=== PATIENT | female | born 1975 | race Caucasian/White ===

== ENCOUNTER 2021-07-15 07:25 | Day surgery (SDC) | payer BC ==
[~2021-07-15] VITALS: Ht 177.8 cm; Wt 163.6 kg
[~2021-07-15 07:25] MED LIST: AZULFIDINE500 MG PO; CLARITIN10 MG PO; FLONASE ALLERG9.9 ML; HYDROCODON-ACE1 EA10 PO; MULTIPLE VITAM1 EAC2 PO; NAPROSYN500 MG PO; NORCO 5-325 TA1 EACH PO; PRENATABS FA T1 EACH PO; ZYRTEC10 MG PO
[2021-07-15] MEDS ORDERED: TYLENOL EXTRA500 MG PO (07:49)
[2021-07-15] MEDS ORDERED: CELECOXIB200 MG PO (09:58)
[2021-07-15] MEDS ORDERED: HYDROCODON-ACE1 EA10 PO (09:58)
--- NOTE | 2021-07-15 09:59 | NUR ---
07/15/21 0959 Gladys Henriquez 0955- PT ARRIVES TO PACU NONAROUSABLE TO NOXIOUS STIMULI WITH AN OPA IN PLACE. RESP EVEN AND UNLABORED. OXYGEN SAT HIGH 90'S TO 100% ON 6L VIA MASK. ICE PACK APPLIED TO PT'S RIGHT KNEE. DRESSING IN BETWEEN SKIN AND ICE PACK.
--- NOTE | 2021-07-15 10:20 | NUR ---
PATIENT UP TO THE BATHROOM WITH 1 RN ASSIST AND HER . GAIT STEADY AND PATIENT TOLERATED WELL. PATIENT THEN UP WALKING AROUND HER ROOM. DENIES PAIN.
--- NOTE | 2021-07-15 10:34 | OR ---
[facility] [address], [place] [address] Signed DATE OF OPERATION: 07/15/2021 SURGEON: Delmi Way MD PREOPERATIVE DIAGNOSIS: Medial meniscus tear, right knee. POSTOPERATIVE DIAGNOSIS: Medial plica, right knee. PROCEDURE PERFORMED: Right knee arthroscopy with limited debridement of plica. CHIEF MATE: None. ANESTHESIA: General. BLOOD LOSS: None. BRIEF HISTORY: Florentino is a 46-year-old female who has painful snapping in her knee. MRI showed a medial meniscus tear. Risks and benefits of operative treatment were discussed with her and she elected to proceed. DESCRIPTION OF PROCEDURE: Once consent was obtained, she was taken to the operating room. After adequate anesthesia, she was placed on the operating table. All downside pressure points were well padded. The left leg was flexed, abducted, and externally rotated in a well-padded leg chapman. The right was placed in well-padded leg chapman and the portal sites were pre-injected using 0.25% Marcaine under an alcohol prep. The leg was then prepped and draped in a standard sterile fashion. Standard inferolateral and superolateral portals were made and the scope was introduced in the knee. ARTHROSCOPIC FINDINGS: The knee showed a synovitis that was mild. There was a medial plica anteromedially. This was relatively inferior compared to the usual plica. ACL and PCL were intact. Lateral compartment is intact. Medial compartment was intact. We carefully visualized Electronically Signed By: DELMI WAY MD 07/15/21 1034 PATIENT NAME: FLORENTINO VELEZ OPERATIVE REPORT DATE OF : 77 REPORT #: [id number] PHYSICIAN: DELMI WAY MD PCP: LUZMA SARGENT REPORT IS CONFIDENTIAL AND NOT TO BE RELEASED WITHOUT AUTHORIZATION [address] [address] Signed and palpated the medial meniscus from the posterior root all the way to the anterior aspect. The undersurface and superior surface neither one showed any tears consistent with what was seen on the MRI. Once adequate evaluation was done, the medial plica was removed using the shaver and the scope was withdrawn, portals were closed with 3-0 nylon. The knee was injected with 60 mg of Toradol at the end of the case. The wounds were then dressed with Adaptic, ABD, and Josh wrap. She tolerated the procedure well. All sponge, needle, and instrument counts were correct. Delmi Way MD BA/MODL /[id number] Copies: ~ Electronically Signed By: DELMI WAY MD 07/15/21 1034 PATIENT NAME: FLORENTINO VELEZ OPERATIVE REPORT DATE OF : 77 REPORT #: [id number] PHYSICIAN: DELMI WAY MD PCP: LUZMA SARGENT REPORT IS CONFIDENTIAL AND NOT TO BE RELEASED WITHOUT AUTHORIZATION
--- NOTE | 2021-07-15 11:02 | NUR ---
PATIENT BACK TO ROOM, BEDSIDE REPORT FROM CHARLES MCKEON. PATIENT AWAKE. PROVIDED SNACKS, NO COMPLAINTS OF NAUSEA. RATES PAIN 1/10 ON PAIN SCALE. ADMINISTERED PAIN MEDICATION PER MAR WITH PLANS TO AMBULATE TO BATHROOM. DRESSING TO RIGHT KNEE C/D/I, ICE IN PLACE WITH ELEVATION.
--- NOTE | 2021-07-15 11:30 | NUR ---
PATIENT UP TO THE BATHROOM WITH 1 RN ASSIST. STEADY GAIT AND PATIENT TOLERATED WELL. PATIENT RATES HER PAIN 2/10.
--- NOTE | 2021-07-15 12:09 | NUR ---
PATIENT AMBULATED TO BATHROOM WITH 1 RN ASSIST. GAIT STEADY AND TOLERATED WELL.
--- NOTE | 2021-07-15 12:21 | NUR ---
PATIENT RESTING COMFORTABLY IN BED. RATES PAIN 2/10. NO NAUSEA. VSS. DRESSING IS CLEAN, DRY, AND INTACT. AT BEDSIDE. CALL LIGHT WITHIN REACH. PATIENT IS READY TO GO HOME.
--- NOTE | 2021-07-15 12:50 | NUR ---
PROVIDED PATIENT WITH DISCHARGE INSTRUCTIONS. PATIENT VERBALIZED UNDERSTANDING AND ALL QUESTIONS ANSWERED. PAIN 2/10. PROVIDED PATIENT WITH WHEELCHIAR RIDE TO FRONT OF HOSPITAL WHERE HER WAS WAITING FOR HER WITH THE CAR.
== END 2021-07-15 12:45 | disposition home or self-care (01) ==
LOC: DS 07:25
PROVIDERS: ATTEND Specialist
PROC: 0SBC4ZZ Excision of Right Knee Joint, Percutaneous Endoscopic Approach (ICD-10-PCS; principal; 2021-07-15 09:00)
DX: M67.51 Plica syndrome, right knee (principal); M65.9 Synovitis and tenosynovitis, unspecified; Z88.5 Allergy status to narcotic agent; Z87.891 Personal history of nicotine dependence
CPT/HCPCS: 01400; J0690; J1100; J1885; J2001; J2250; J2405; J2704; J3010; J7121

== ENCOUNTER 2023-06-05 18:44 | Emergency (ER) | payer BC ==
[~2023-06-05] VITALS: Ht 177.8 cm; Wt 163.3 kg
--- OUTSIDE RECORDS SUMMARY | ~2023-06-05 | XMS | Continuity of Care Document ---
Demographics + + + | Address | [address] | | | [place] [address] | + + + | Preferred Language | Unknown | + + + | Marital Status | | + + + | Sikhism Affiliation | Unknown | + + + | Race | White | + + + | Ethnic Group | Not or | + + + Author + + + | Author | [facility] | + + + | Organization | [facility] | + + + | Address | [address] | | | [place] [address] | + + + | Phone | | + + + Care Team Providers + + + + | Care Progress Man Name | Role | Phone | + + + + Unavailable | Unavailable | + + + + Unavailable | Unavailable | + + + + Allergies and Intolerances + + + + + | date | description | facility | type | + + + + + | (no date) | Rash | [facility] (unknown[facility] | | | [facility] | | + + + + + | (no date) | Morphine | [facility] | (unknown) | | | | [facility] | | + + + + + | (no date) | Morphine | [facility] | (unknown) | | | | [facility] | | + + + + + | (no date) | Morphine | [facility] | (unknown) | | | | Hospital | | + + + + + | (no date) | morphine | [facility] | (unknown) | + + + + + | (no date) | adhesive tape | [facility] | (unknown) | + + + + + | (no date) | shellfish derived | [facility] | (unknown) | + + + + + Encounters No information. Functional Status No information. Immunizations + + + + | date | description | facility | + + + + | 2019-08-20 00:00 | YENIFER Wong 6 mo-64 yrs | [facility] | | | Quadrivalent | | + + + + | 2021-09-28 00:00 | GIUSEPPELeslie Spearsadalberto 6 mo-65 yrs | [facility] | | | Quadrivalent | | + + + + Medications + + + + | date | description | facility | + + + + | 2015-03-25 00:00 | triamcinolone acetonide 1 | [facility] | | | MG/ML Topical Cream | | + + + + | 2016-10-31 00:00 | triamcinolone acetonide 1 | [facility] | | | MG/ML Topical Cream | | + + + + | 2022-03-23 00:00 | triamcinolone acetonide 1 | [facility] | | | MG/ML Topical Cream | | + + + + | 2023-05-26 00:00 | CETIRIZINE HCL | [facility] | + + + + | 2017-02-13 00:00 | cetirizine hydrochloride | [facility] | | | 10 MG Oral Tablet [Zyrtec] | | + + + + | 2012-11-06 00:00 | Vitamin D3 25 MCG (1000 | [facility] | | | UT) OR CAPS | | + + + + | 2015-03-25 00:00 | 12 HR pseudoephedrine | [facility] | | | hydrochloride 120 MG | | | | Extended Release Oral | | | | Tablet | | + + + + | 2016-11-22 00:00 | acetaminophen 325 MG / | [facility] | | | oxycodone hydrochloride 5 | | | | MG Oral Tablet [Percocet] | | + + + + | 2023-05-26 00:00 | NAPROXEN | [facility] | + + + + | 2022-08-22 00:00 | mupirocin 0.02 MG/MG | [facility] | | | Topical Ointment | | + + + + | 2015-08-23 00:00 | ProAir HFA 108 (90 Base) | [facility] | | | MCG/ACT Aerosol, solution | | + + + + | 2012-08-05 00:00 | Maxzide-25 37.5-25 MG OR | [facility] | | | TABS | | + + + + | 2017-02-13 00:00 | ZyrTEC Allergy 10 MG | [facility] | | | Tablet | | + + + + | 2014-08-14 00:00 | [facility] +DHA | [facility] | | | 28-0.975 & 200 MG OR MISC | | + + + + | 2012-07-31 00:00 | Naproxen 500 MG OR TABS | [facility] | | | | | + + + + | 2022-09-14 00:00 | doxycycline monohydrate | [facility] | | | 100 MG Oral Capsule | | + + + + | 2016-11-22 00:00 | Percocet 5-325 MG OR TABS | [facility] | | | | | + + + + | 2016-11-22 00:00 | Percocet 5-325 MG Tablet | [facility] | | | | | + + + + | 2016-06-23 00:00 | Turmeric Curcumin 500 MG | [facility] | | | Capsule | | + + + + | 2016-08-04 00:00 | methylprednisolone 125 MG | [facility] | | | Injection [Solu-Medrol] | | + + + + | 2015-03-25 00:00 | predniSONE 10 MG OR TABS | [facility] | | | | | + + + + | 2015-08-17 00:00 | PredniSONE 20 MG Tablet | [facility] | | | | | + + + + | 2015-08-23 00:00 | PredniSONE 20 MG Tablet | [facility] | | | | | + + + + | 2016-08-04 00:00 | PredniSONE 20 MG Tablet | [facility] | | | | | + + + + | 2016-10-31 00:00 | PredniSONE 20 MG Tablet | [facility] | | | | | + + + + | 2018-09-03 00:00 | PredniSONE 20MG Oral | [facility] | | | Tablet | | + + + + | 2023-05-26 00:00 | FLUTICASONE PROPIONATE | [facility] | + + + + | 2013-09-26 00:00 | cefprozil 500 MG Oral | [facility] | | | Tablet | | + + + + | 2012-07-31 00:00 | naproxen 500 MG Oral | [facility] | | | Tablet | | + + + + | 2015-03-25 00:00 | prednisone 10 MG Oral | [facility] | | | Tablet | | + + + + | 2014-09-09 00:00 | sulfasalazine 500 MG Oral | [facility] | | | Tablet | | + + + + | 2015-10-05 00:00 | sulfasalazine 500 MG Oral | [facility] | | | Tablet | | + + + + | 2016-08-04 00:00 | sulfasalazine 500 MG Oral | [facility] | | | Tablet | | + + + + | 2017-09-12 00:00 | sulfasalazine 500 MG Oral | [facility] | | | Tablet | | + + + + | 2018-12-23 00:00 | sulfasalazine 500 MG Oral | [facility] | | | Tablet | | + + + + | 2020-01-08 00:00 | sulfasalazine 500 MG Oral | [facility] | | | Tablet | | + + + + | 2023-05-26 00:00 | ACETAMINOPHEN | [facility] | + + + + | 2016-08-04 00:00 | SOLU-Medrol 125 MG IJ SOLR | [facility] | | | | | + + + + | 2015-10-05 00:00 | SulfaSALAzine 500 MG | [facility] | | | Tablet | | + + + + | 2016-08-04 00:00 | SulfaSALAzine 500 MG | [facility] | | | Tablet | | + + + + | 2017-09-12 00:00 | SulfaSALAzine 500MG Oral | [facility] | | | Tablet | | + + + + | 2018-12-23 00:00 | SulfaSALAzine 500MG Oral | [facility] | | | Tablet | | + + + + | 2014-09-09 00:00 | sulfaSALAzine 500 MG OR | [facility] | | | TABS | | + + + + | 2020-01-08 00:00 | sulfaSALAzine 500 MG OR | [facility] | | | TABS | | + + + + | 2021-07-15 00:00 | CELECOXIB | [facility] | + + + + | 2023-05-26 00:00 | LORATADINE | [facility] | + + + + | 2012-11-06 00:00 | fluconazole 200 MG Oral | [facility] | | | Tablet [Diflucan] | | + + + + | 2023-05-26 00:00 | SULFASALAZINE | [facility] | + + + + | 2022-03-23 00:00 | Ubrelvy 100 MG Oral Tablet | [facility] | | | | | + + + + | 2018-01-30 00:00 | acetaminophen 500 MG Oral | [facility] | | | Tablet [Tylenol] | | + + + + | 2022-04-11 00:00 | Nurtec 75 MG Oral Tablet | [facility] | | | Disintegrating | | + + + + | 2022-04-18 00:00 | Nurtec 75 MG Oral Tablet | [facility] | | | Disintegrating | | + + + + | 2016-10-31 00:00 | Triamcinolone Acetonide | [facility] | | | 0.1 % Cream | | + + + + | 2015-03-25 00:00 | Triamcinolone Acetonide | [facility] | | | 0.1% EX CREA | | + + + + | 2022-03-23 00:00 | Triamcinolone Acetonide | [facility] | | | 0.1% External Cream | | + + + + | 2018-01-30 00:00 | Tylenol Extra Strength | [facility] | | | 500MG Oral Tablet | | + + + + | 2022-03-23 00:00 | ubrogepant 100 MG Oral | [facility] | | | Tablet [Ubrelvy] | | + + + + | 2022-04-11 00:00 | Rimegepant 75 MG | [facility] | | | Disintegrating Oral Tablet | | | | [Nurtec] | | + + + + | 2022-04-18 00:00 | Rimegepant 75 MG | [facility] | | | Disintegrating Oral Tablet | | | | [Nurtec] | | + + + + | 2022-04-11 00:00 | rimegepant 75 MG | [facility] | | | Disintegrating Oral Tablet | | | | [Nurtec] | | + + + + | 2022-04-18 00:00 | rimegepant 75 MG | [facility] | | | Disintegrating Oral Tablet | | | | [Nurtec] | | + + + + | 2012-11-06 00:00 | cholecalciferol 0.025 MG | [facility] | | | Oral Capsule | | + + + + | 2013-09-26 00:00 | Cefprozil 500 MG OR TABS | [facility] | | | | | + + + + | 2022-09-14 00:00 | Doxycycline Monohydrate | [facility] | | | 100 MG Oral Capsule | | + + + + | 2012-10-03 00:00 | Famotidine 20 MG OR TABS | [facility] | | | | | + + + + | 2017-05-02 00:00 | FLUoxetine HCl 10 MG | [facility] | | | Capsule | | + + + + | 2020-01-08 00:00 | FLUoxetine HCl 10 MG OR | [facility] | | | CAPS | | + + + + | 2022-03-23 00:00 | FLUoxetine HCl 10 MG Oral | [facility] | | | Capsule | | + + + + | 2023-02-05 00:00 | FLUoxetine HCl 10 MG Oral | [facility] | | | Capsule | | + + + + | 2017-09-12 00:00 | FLUoxetine HCl 10MG Oral | [facility] | | | Capsule | | + + + + | 2018-12-24 00:00 | FLUoxetine HCl 10MG Oral | [facility] | | | Capsule, conventional | | + + + + | 2022-03-23 00:00 | Lisinopril 10 MG Oral | [facility] | | | Tablet | | + + + + | 2022-06-27 00:00 | Lisinopril 10 MG Oral | [facility] | | | Tablet | | + + + + | 2017-02-13 00:00 | sumatriptan 100 MG Oral | [facility] | | | Tablet [Imitrex] | | + + + + | 2021-09-28 00:00 | sumatriptan 100 MG Oral | [facility] | | | Tablet [Imitrex] | | + + + + | 2022-04-18 00:00 | sumatriptan 100 MG Oral | [facility] | | | Tablet [Imitrex] | | + + + + | 2022-08-22 00:00 | Mupirocin 2% External | [facility] | | | Ointment | | + + + + | 2012-10-03 00:00 | famotidine 20 MG Oral | [facility] | | | Tablet | | + + + + | 2017-05-02 00:00 | fluoxetine 10 MG Oral | [facility] | | | Capsule | | + + + + | 2017-09-12 00:00 | fluoxetine 10 MG Oral | [facility] | | | Capsule | | + + + + | 2018-12-24 00:00 | fluoxetine 10 MG Oral | [facility] | | | Capsule | | + + + + | 2020-01-08 00:00 | fluoxetine 10 MG Oral | [facility] | | | Capsule | | + + + + | 2022-03-23 00:00 | fluoxetine 10 MG Oral | [facility] | | | Capsule | | + + + + | 2023-02-05 00:00 | fluoxetine 10 MG Oral | [facility] | | | Capsule | | + + + + | 2015-08-17 00:00 | prednisone 20 MG Oral | [facility] | | | Tablet | | + + + + | 2015-08-23 00:00 | prednisone 20 MG Oral | [facility] | | | Tablet | | + + + + | 2016-08-04 00:00 | prednisone 20 MG Oral | [facility] | | | Tablet | | + + + + | 2016-10-31 00:00 | prednisone 20 MG Oral | [facility] | | | Tablet | | + + + + | 2018-09-03 00:00 | prednisone 20 MG Oral | [facility] | | | Tablet | | + + + + | 2022-03-23 00:00 | lisinopril 10 MG Oral | [facility] | | | Tablet | | + + + + | 2022-06-27 00:00 | lisinopril 10 MG Oral | [facility] | | | Tablet | | + + + + | 2012-11-06 00:00 | Augmentin 500-125 MG OR | [facility] | | | TABS | | + + + + | 2017-02-13 00:00 | acetaminophen 500 MG / | [facility] | | | caffeine 65 MG Oral Tablet | | | | [Excedrin Tension Headache] | | | | | | + + + + | 2021-09-28 00:00 | Fluzone | [facility] | | | | | + + + + | 2017-02-13 00:00 | Cyclobenzaprine HCl 10 MG | [facility] | | | Tablet | | + + + + | 2022-04-18 00:00 | Maxalt-FARM EQUIPMENT TECHNICIAN 10 MG Oral | [facility] | | | Tablet Disintegrating | | + + + + | 2012-11-06 00:00 | Diflucan 200 MG OR TABS | [facility] | | | | | + + + + | 2021-09-28 00:00 | Imitrex 100 MG Oral Tablet | [facility] | | | | | + + + + | 2022-04-18 00:00 | Imitrex 100 MG Oral Tablet | [facility] | | | | | + + + + | 2017-02-13 00:00 | Imitrex 100 MG Tablet | [facility] | | | | | + + + + | 2015-08-23 00:00 | [id number] 200 ACTUAT | [facility] | | | albuterol 0.09 MG/ACTUAT | | | | Metered Dose Inhaler | | | | [ProAir] | | + + + + | 2012-11-06 00:00 | amoxicillin 500 MG / | [facility] | | | clavulanate 125 MG Oral | | | | Tablet [Augmentin] | | + + + + | 2017-02-13 00:00 | cyclobenzaprine | [facility] | | | hydrochloride 10 MG Oral | | | | Tablet | | + + + + | 2022-04-18 00:00 | rizatriptan 10 MG | [facility] | | | Disintegrating Oral Tablet | | | | [Maxalt] | | + + + + | 2015-03-25 00:00 | Pseudoephedrine HCl ER 120 | [facility] | | | MG OR TB12 | | + + + + | 2021-07-15 00:00 | HYDROCODONE | [facility] | | | BIT/ACETAMINOPHEN | | + + + + | 2014-07-10 00:00 | HYDROCODONE | [facility] | | | BIT/ACETAMINOPHEN | | + + + + | 2012-11-06 00:00 | Sudafed 12 Hour 120 MG OR | [facility] | | | TB12 | | + + + + | 2017-09-12 00:00 | Mucinex 600MG Oral Tablet | [facility] | | | Extended Release 12 Hour | | + + + + | 2017-09-12 00:00 | 12 HR guaifenesin 600 MG | [facility] | | | Extended Release Oral | | | | Tablet [Mucinex] | | + + + + | 2017-02-13 00:00 | Excedrin Tension Headache | [facility] | | | 500-65 MG Tablet | | + + + + | 2012-08-05 00:00 | hydrochlorothiazide 25 MG | [facility] | | | / triamterene 37.5 MG Oral | | | | Tablet [Maxzide] | | + + + + | 2015-08-17 00:00 | Miscellaneous Tablet | [facility] | | | | | + + + + | 2015-03-25 00:00 | VITAMIN D2 50,000 OR | [facility] | | | TABS | | + + + + | 2015-08-23 00:00 | Miscellaneous | [facility] 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 | | | (disorder) | | + + + + | 2023-05-02 10:47 | STRAIN OF RIGHT QUADRICEPS | [facility] | | | MUSCLE, FASCIA AND TENDON, | | | | SUBS | | + + + + Procedures + + + + | date | description | facility | + + + + | 2014-08-14 00:00 | [facility] of surgery | [facility] | | | (situation) | | + + + + | 2021-04-12 00:00 | Inj/Asp Major Joint/Bursa | [facility] | | | (Shoulder;Hip;Knee); W/O US | | | | [facility] | | + + + + | 2021-07-15 00:00 | Arthroscopy; knee; | [facility] | | | surgical; synovectomy; | | | | limited | | + + + + | 2014-08-14 00:00 | history of prior surgery | [facility] | | | [For Hx of Tx, use H | | | | prefix] | | + + + + | 2021-11-23 00:00 | Colonoscopy; Flexible; | [facility] | | | With Biopsy; Single or | | | | Multiple | | + + + + | 2021-04-12 00:00 | Xray Knee 3 Views | [facility] | | | | | + + + + | 2021-09-28 00:00 | Immunization | [facility] | | | Administration; 1 Vaccine | | + + + + | 2021-09-28 00:00 | FluLaval Quadrivalent PFS | [facility] | | | flu vaccine, 6 mos+ | | + + + + | 2021-09-28 00:00 | Flulaval Flu Vaccine PFS | [facility] | | | Quadrivalent | | + + + + | 2021-04-12 00:00 | Kenalog; Injection | [facility] | | | (Triamcinolone Acetonide); | | | | 10 MG | | + + + + Results/Labs +--------+--------+ + +---------+--------+ + | test | date | author | facility | value | unit | | | | | | | | | interpreta | | | | | | | | tion | +--------+--------+ + +---------+--------+ + + + | Result panel 1 | + + + + + + +---------+ + + | (unknown) | (no date) | (unknown) | [facility] | (no | (units | (unknown) | | | | | [facility] | value) | unknown) | | | | | | [facility] | | | | | [facility] | | | | + + + + +---------+ + + + + | Result panel 2 | + + + + + + +---------+ + + | (unknown) | (no date) | (unknown) | [facility] | (no | (units | (unknown) | | | | | [facility] | value) | unknown) | | | | | | [facility] | | | | | | | | [facility] | | | | + + + + +---------+ + + + + | Result panel 3 | + + + + + + +---------+ + + | (unknown) | (no date) | (unknown) | [facility] | (no | (units | (unknown) | | | | | [facility] | value) | unknown) | | | | | | [facility] | | | | | | | | [facility] | | | | + + + + +---------+ + + + + | Result panel 4 | + + + + + + +---------+ + + | (unknown) | (no date) | (unknown) | [facility] | (no | (units | (unknown) | | | | | [facility] | value) | unknown) | | | | | | [facility] | | | | | | | | [facility] | | | | + + + + +---------+ + + + + | Result panel 5 | + + + + + + +---------+ + + | (unknown) | (no date) | (unknown) | [facility] | (no | (units | (unknown) | | | | | [facility] | value) | unknown) | | | | | | [facility] | | | | | | | | [facility] | | | | + + + + +---------+ + + + + | Result panel 6 | + + + + + + +---------+ + + | (unknown) | (no date) | (unknown) | [facility] | (no | (units | (unknown) | | | | | [facility] | value) | unknown) | | | | | | [facility] | | | | | | | | [facility] | | | | + + + + +---------+ + + + + | Result panel 7 | + + + + + + +---------+ + + | (unknown) | (no date) | (unknown) | [facility] | (no | (units | (unknown) | | | | | [facility] | value) | unknown) | | | | | | [facility] | | | | | | | | [facility] | | | | + + + + +---------+ + + + + | Result panel 8 | + + + + + + +---------+ + + | (unknown) | (no date) | (unknown) | [facility] | (no | (units | (unknown) | | | | | [facility] | value) | unknown) | | | | | | [facility] | | | | | | | | [facility] | | | | + + + + +---------+ + + + + | Result panel 9 | + + + + + + +---------+ + + | (unknown) | (no date) | (unknown) | [facility] | (no | (units | (unknown) | | | | | [facility] | value) | unknown) | | | | | | [facility] | | | | | | | | [facility] | | | | + + + + +---------+ + + + + | Result panel 10 | + + + + + + +---------+ + + | (unknown) | (no date) | (unknown) | [facility] | (no | (units | (unknown) | | | | | [facility] | value) | unknown) | | | | | | [facility], | | | | | | | | [facility] | | | | + + + + +---------+ + + + + | Result panel 11 | + + + + + + +---------+ + + | (unknown) | (no date) | (unknown) | [facility] | (no | (units | (unknown) | | | | | [facility] | value) | unknown) | | | | | | [facility], | | | | | | | | [facility] | | | | + + + + +---------+ + + + + | Result panel 12 | + + + + + + +---------+ + + | (unknown) | (no date) | (unknown) | [facility] | (no | (units | (unknown) | | | | | [facility] | value) | unknown) | | | | | | [facility], | | | | | | | | [facility] | | | | + + + + +---------+ + + + + | Result panel 13 | + + + + + + +---------+ + + | (unknown) | (no date) | (unknown) | [facility] | (no | (units | (unknown) | | | | | [facility] | value) | unknown) | | | | | | [facility], | | | | | | | | [facility] | | | | + + + + +---------+ + + + + | Result panel 14 | + + + + + + +---------+ + + | (unknown) | (no date) | (unknown) | [facility] | (no | (units | (unknown) | | | | | [facility] | value) | unknown) | | | | | | [facility], | | | | | | | | [facility] | | | | + + + + +---------+ + + + + | Result panel 15 | + + + + + + +---------+ + + | (unknown) | (no date) | (unknown) | [facility] | (no | (units | (unknown) | | | | | [facility] | value) | unknown) | | | | | | [facility], | | | | | | | | [facility] | | | | + + + + +---------+ + + + + | Result panel 16 | + + + + + + +---------+ + + | (unknown) | (no date) | (unknown) | [facility] | (no | (units | (unknown) | | | | | [facility] | value) | unknown) | | | | | | [facility], | | | | | | | | [facility] | | | | + + + + +---------+ + + + + | Result panel 17 | + + + + + + +---------+ + + | (unknown) | (no date) | (unknown) | [facility] | (no | (units | (unknown) | | | | | [facility] | value) | unknown) | | | | | | [facility], | | | | | | | | [facility] | | | | + + + + +---------+ + + + + | Result panel 18 | + + + + + + +---------+ + + | (unknown) | (no date) | (unknown) | [facility] | (no | (units | (unknown) | | | | | MEDICAL | value) | unknown) | | | | | | GROUP, | | | | | | | | [facility] | | | | + + + + +---------+ + + + + | Result panel 19 | + + + + + + +---------+ + + | (unknown) | (no date) | (unknown) | [facility] | (no | (units | (unknown) | | | | | MEDICAL | value) | unknown) | | | | | | GROUP, | | | | | | | | [facility] | | | | + + + + +---------+ + + + + | Result panel 20 | + + + + + + +---------+ + + | (unknown) | (no date) | (unknown) | [facility] | (no | (units | (unknown) | | | | | MEDICAL | value) | unknown) | | | | | | GROUP, | | | | | | | | [facility] | | | | + + + + +---------+ + + + + | Result panel 21 | + + + + + + +---------+ + + | (unknown) | (no date) | (unknown) | [facility] | (no | (units | (unknown) | | | | | MEDICAL | value) | unknown) | | | | | | [facility], | | | | | | | | [facility] | | | | + + + + +---------+ + + + + | Result panel 22 | + + + + + + +---------+ + + | (unknown) | (no date) | (unknown) | [facility] | (no | (units | (unknown) | | | | | MEDICAL | value) | unknown) | | | | | | GROUP, | | | | | | | | [facility] | | | | + + + + +---------+ + + + + | Result panel 23 | + + + + + + +---------+ + + | (unknown) | (no date) | (unknown) | [facility] | (no | (units | (unknown) | | | | | MEDICAL | value) | unknown) | | | | | | GROUP, | | | | | | | | [facility] | | | | + + + + +---------+ + + + + | Result panel 24 | + + + + + + +---------+ + + | (unknown) | (no date) | (unknown) | [facility] | (no | (units | (unknown) | | | | | MEDICAL | value) | unknown) | | | | | | [facility], | | | | | | | | [facility] | | | | + + + + +---------+ + + + + | Result panel 25 | + + + + + + +---------+ + + | (unknown) | (no date) | (unknown) | [facility] | (no | (units | (unknown) | | | | | MEDICAL | value) | unknown) | | | | | | [facility], | | | | | | | | [facility] | | | | + + + + +---------+ + + + + | Result panel 26 | + + + + + + +---------+ + + | (unknown) | (no date) | (unknown) | [facility] | (no | (units | (unknown) | | | | | MEDICAL | value) | unknown) | | | | | | GROUP, | | | | | | | | [facility] | | | | + + + + +---------+ + + + + | Result panel 27 | + + + + + + +---------+ + + | (unknown) | (no date) | (unknown) | [facility] | (no | (units | (unknown) | | | | | MEDICAL | value) | unknown) | | | | | | GROUP, | | | | | | | | [facility] | | | | + + + + +---------+ + + + + | Result panel 28 | + + + + + + +---------+ + + | (unknown) | (no date) | (unknown) | [facility] | (no | (units | (unknown) | | | | | MEDICAL | value) | unknown) | | | | | | GROUP, | | | | | | | | [facility] | | | | + + + + +---------+ + + + + | Result panel 29 | + + + + + + +---------+ + + | (unknown) | (no date) | (unknown) | [facility] | (no | (units | (unknown) | | | | | MEDICAL | value) | unknown) | | | | | | GROUP, | | | | | | | | [facility] | | | | + + + + +---------+ + + + + | Result panel 30 | + + + + + + +---------+ + + | (unknown) | (no date) | (unknown) | [facility] | (no | (units | (unknown) | | | | | MEDICAL | value) | unknown) | | | | | | GROUP, | | | | | | | | [facility] | | | | + + + + +---------+ + + + + | Result panel 31 | + + + + + + +---------+ + + | (unknown) | (no date) | (unknown) | [facility] | (no | (units | (unknown) | | | | | MEDICAL | value) | unknown) | | | | | | [facility], | | | | | | | | [facility] | | | | + + + + +---------+ + + + + | Result panel 32 | + + + + + + +---------+ + + | (unknown) | (no date) | (unknown) | [facility] | (no | (units | (unknown) | | | | | MEDICAL | value) | unknown) | | | | | | GROUP, | | | | | | | | [facility] | | | | + + + + +---------+ + + + + | Result panel 33 | + + + + + + +---------+ + + | (unknown) | (no date) | (unknown) | [facility] | (no | (units | (unknown) | | | | | MEDICAL | value) | unknown) | | | | | | GROUP, | | | | | | | | [facility] | | | | + + + + +---------+ + + + + | Result panel 34 | + + + + + + +---------+ + + | (unknown) | (no date) | (unknown) | [facility] | (no | (units | (unknown) | | | | | MEDICAL | value) | unknown) | | | | | | GROUP, | | | | | | | | [facility] | | | | + + + + +---------+ + + + + | Result panel 35 | + + + + + + +---------+ + + | (unknown) | (no date) | (unknown) | [facility] | (no | (units | (unknown) | | | | | MEDICAL | value) | unknown) | | | | | | GROUP, | | | | | | | | [facility] | | | | + + + + +---------+ + + + + | Result panel 36 | + + + + + + +---------+ + + | (unknown) | (no date) | (unknown) | [facility] | (no | (units | (unknown) | | | | | MEDICAL | value) | unknown) | | | | | | GROUP, | | | | | | | | [facility] | | | | + + + + +---------+ + + + + | Result panel 37 | + + + + + + +---------+ + + | (unknown) | (no date) | (unknown) | [facility] | (no | (units | (unknown) | | | | | MEDICAL | value) | unknown) | | | | | | GROUP, | | | | | | | | [facility] | | | | + + + + +---------+ + + + + | Result panel 38 | + + + + + + +---------+ + + | (unknown) | (no date) | (unknown) | [facility] | (no | (units | (unknown) | | | | | MEDICAL | value) | unknown) | | | | | | GROUP, | | | | | | | | [facility] | | | | + + + + +---------+ + + + + | Result panel 39 | + + + + + + +---------+ + + | (unknown) | (no date) | (unknown) | [facility] | (no | (units | (unknown) | | | | | MEDICAL | value) | unknown) | | | | | | GROUP, | | | | | | | | [facility] | | | | + + + + +---------+ + + + + | Result panel 40 | + + + + + + +---------+ + + | (unknown) | (no date) | (unknown) | [facility] | (no | (units | (unknown) | | | | | MEDICAL | value) | unknown) | | | | | | GROUP, | | | | | | | | [facility] | | | | + + + + +---------+ + + + + | Result panel 41 | + + + + + + +---------+ + + | (unknown) | (no date) | (unknown) | [facility] | (no | (units | (unknown) | | | | | MEDICAL | value) | unknown) | | | | | | GROUP, | | | | | | | | [facility] | | | | + + + + +---------+ + + + + | Result panel 42 | + + + + + + +---------+ + + | (unknown) | (no date) | (unknown) | [facility] | (no | (units | (unknown) | | | | | MEDICAL | value) | unknown) | | | | | | GROUP, | | | | | | | | [facility] | | | | + + + + +---------+ + + + + | Result panel 43 | + + + + + + +---------+ + + | (unknown) | (no date) | (unknown) | [facility] | (no | (units | (unknown) | | | | | MEDICAL | value) | unknown) | | | | | | GROUP, | | | | | | | | [facility] | | | | + + + + +---------+ + + + + | Result panel 44 | + + + + + + +---------+ + + | (unknown) | (no date) | (unknown) | [facility] | (no | (units | (unknown) | | | | | MEDICAL | value) | unknown) | | | | | | GROUP, | | | | | | | | [facility] | | | | + + + + +---------+ + + + + | Result panel 45 | + + + + + + +---------+ + + | (unknown) | (no date) | (unknown) | [facility] | (no | (units | (unknown) | | | | | MEDICAL | value) | unknown) | | | | | | GROUP, | | | | | | | | [facility] | | | | + + + + +---------+ + + + + | Result panel 46 | + + + + + + +---------+ + + | (unknown) | (no date) | (unknown) | [facility] | (no | (units | (unknown) | | | | | MEDICAL | value) | unknown) | | | | | | GROUP, | | | | | | | | [facility] | | | | + + + + +---------+ + + + + | Result panel 47 | + + + + + + +---------+ + + | (unknown) | (no date) | (unknown) | [facility] | (no | (units | (unknown) | | | | | MEDICAL | value) | unknown) | | | | | | GROUP, | | | | | | | | [facility] | | | | + + + + +---------+ + + + + | Result panel 48 | + + + + + + +---------+ + + | (unknown) | (no date) | (unknown) | [facility] | (no | (units | (unknown) | | | | | MEDICAL | value) | unknown) | | | | | | GROUP, | | | | | | | | [facility] | | | | + + + + +---------+ + + + + | Result panel 49 | + + + + + + +---------+ + + | (unknown) | (no date) | (unknown) | [facility] | (no | (units | (unknown) | | | | | MEDICAL | value) | unknown) | | | | | | GROUP, | | | | | | | | [facility] | | | | + + + + +---------+ + + + + | Result panel 50 | + + + + + + +---------+ + + | (unknown) | (no date) | (unknown) | [facility] | (no | (units | (unknown) | | | | | MEDICAL | value) | unknown) | | | | | | GROUP, | | | | | | | | [facility] | | | | + + + + +---------+ + + + + | Result panel 51 | + + + + + + +---------+ + + | (unknown) | (no date) | (unknown) | [facility] | (no | (units | (unknown) | | | | | MEDICAL | value) | unknown) | | | | | | GROUP, | | | | | | | | [facility] | | | | + + + + +---------+ + + + + | Result panel 52 | + + + + + + +---------+ + + | (unknown) | (no date) | (unknown) | [facility] | (no | (units | (unknown) | | | | | MEDICAL | value) | unknown) | | | | | | GROUP, | | | | | | | | [facility] | | | | + + + + +---------+ + + + + | Result panel 53 | + + + + + + +---------+ + + | (unknown) | (no date) | (unknown) | [facility] | (no | (units | (unknown) | | | | | MEDICAL | value) | unknown) | | | | | | GROUP, | | | | | | | | [facility] | | | | + + + + +---------+ + + + + | Result panel 54 | + + + + + + +---------+ + + | (unknown) | (no date) | (unknown) | [facility] | (no | (units | (unknown) | | | | | MEDICAL | value) | unknown) | | | | | | GROUP, | | | | | | | | [facility] | | | | + + + + +---------+ + + + + | Result panel 55 | + + + + + + +---------+ + + | (unknown) | (no date) | (unknown) | [facility] | (no | (units | (unknown) | | | | | MEDICAL | value) | unknown) | | | | | | GROUP, | | | | | | | | [facility] | | | | + + + + +---------+ + + + + | Result panel 56 | + + + + + + +---------+ + + | (unknown) | (no date) | (unknown) | [facility] | (no | (units | (unknown) | | | | | MEDICAL | value) | unknown) | | | | | | GROUP, | | | | | | | | [facility] | | | | + + + + +---------+ + + + + | Result panel 57 | + + + + + + +---------+ + + | (unknown) | (no date) | (unknown) | [facility] | (no | (units | (unknown) | | | | | MEDICAL | value) | unknown) | | | | | | GROUP, | | | | | | | | [facility] | | | | + + + + +---------+ + + + + | Result panel 58 | + + + + + + +---------+ + + | (unknown) | (no date) | (unknown) | [facility] | (no | (units | (unknown) | | | | | MEDICAL | value) | unknown) | | | | | | GROUP, | | | | | | | | [facility] | | | | + + + + +---------+ + + + + | Result panel 59 | + + + + + + +---------+ + + | (unknown) | (no date) | (unknown) | [facility] | (no | (units | (unknown) | | | | | MEDICAL | value) | unknown) | | | | | | GROUP, | | | | | | | | [facility] | | | | + + + + +---------+ + + + + | Result panel 60 | + + + + + + +---------+ + + | (unknown) | (no date) | (unknown) | [facility] | (no | (units | (unknown) | | | | | MEDICAL | value) | unknown) | | | | | | GROUP, | | | | | | | | [facility] | | | | + + + + +---------+ + + + + | Result panel 61 | + + + + + + +---------+ + + | (unknown) | (no date) | (unknown) | [facility] | (no | (units | (unknown) | | | | | MEDICAL | value) | unknown) | | | | | | GROUP, | | | | | | | | [facility] | | | | + + + + +---------+ + + + + | Result panel 62 | + + + + + + +---------+ + + | (unknown) | (no date) | (unknown) | [facility] | (no | (units | (unknown) | | | | | MEDICAL | value) | unknown) | | | | | | GROUP, | | | | | | | | [facility] | | | | + + + + +---------+ + + + + | Result panel 63 | + + + + + + +---------+ + + | (unknown) | (no date) | (unknown) | [facility] | (no | (units | (unknown) | | | | | MEDICAL | value) | unknown) | | | | | | GROUP, | | | | | | | | [facility] | | | | + + + + +---------+ + + + + | Result panel 64 | + + + + + + +---------+ + + | (unknown) | (no date) | (unknown) | [facility] | (no | (units | (unknown) | | | | | MEDICAL | value) | unknown) | | | | | | GROUP, | | | | | | | | [facility] | | | | + + + + +---------+ + + + + | Result panel 65 | + + + + + + +---------+ + + | (unknown) | (no date) | (unknown) | [facility] | (no | (units | (unknown) | | | | | MEDICAL | value) | unknown) | | | | | | GROUP, | | | | | | | | [facility] | | | | + + + + +---------+ + + + + | Result panel 66 | + + + + + + +---------+ + + | (unknown) | (no date) | (unknown) | [facility] | (no | (units | (unknown) | | | | | MEDICAL | value) | unknown) | | | | | | GROUP, | | | | | | | | [facility] | | | | + + + + +---------+ + + + + | Result panel 67 | + + + + + + +---------+ + + | (unknown) | (no date) | (unknown) | [facility] | (no | (units | (unknown) | | | | | MEDICAL | value) | unknown) | | | | | | GROUP, | | | | | | | | [facility] | | | | + + + + +---------+ + + + + | Result panel 68 | + + + + + + +---------+ + + | (unknown) | (no date) | (unknown) | [facility] | (no | (units | (unknown) | | | | | MEDICAL | value) | unknown) | | | | | | GROUP, | | | | | | | | [facility] | | | | + + + + +---------+ + + + + | Result panel 69 | + + + + + + +---------+ + + | (unknown) | (no date) | (unknown) | [facility] | (no | (units | (unknown) | | | | | MEDICAL | value) | unknown) | | | | | | GROUP, | | | | | | | | [facility] | | | | + + + + +---------+ + + + + | Result panel 70 | + + + + + + +---------+ + + | (unknown) | (no date) | (unknown) | [facility] | (no | (units | (unknown) | | | | | MEDICAL | value) | unknown) | | | | | | GROUP, | | | | | | | | [facility] | | | | + + + + +---------+ + + + + | Result panel 71 | + + + + + + +---------+ + + | (unknown) | (no date) | (unknown) | [facility] | (no | (units | (unknown) | | | | | MEDICAL | value) | unknown) | | | | | | GROUP, | | | | | | | | [facility] | | | | + + + + +---------+ + + + + | Result panel 72 | + + + + + + +---------+ + + | (unknown) | (no date) | (unknown) | [facility] | (no | (units | (unknown) | | | | | MEDICAL | value) | unknown) | | | | | | GROUP, | | | | | | | | [facility] | | | | + + + + +---------+ + + + + | Result panel 73 | + + + + + + +---------+ + + | (unknown) | (no date) | (unknown) | [facility] | (no | (units | (unknown) | | | | | MEDICAL | value) | unknown) | | | | | | GROUP, | | | | | | | | [facility] | | | | + + + + +---------+ + + + + | Result panel 74 | + + + + + + +---------+ + + | (unknown) | (no date) | (unknown) | [facility] | (no | (units | (unknown) | | | | | MEDICAL | value) | unknown) | | | | | | GROUP, | | | | | | | | [facility] | | | | + + + + +---------+ + + + + | Result panel 75 | + + + + + + +---------+ + + | (unknown) | (no date) | (unknown) | [facility] | (no | (units | (unknown) | | | | | MEDICAL | value) | unknown) | | | | | | GROUP, | | | | | | | | [facility] | | | | + + + + +---------+ + + + + | Result panel 76 | + + + + + + +---------+ + + | (unknown) | (no date) | (unknown) | [facility] | (no | (units | (unknown) | | | | | MEDICAL | value) | unknown) | | | | | | GROUP, | | | | | | | | [facility] | | | | + + + + +---------+ + + + + | Result panel 77 | + + + + + + +---------+ + + | (unknown) | (no date) | (unknown) | [facility] | (no | (units | (unknown) | | | | | MEDICAL | value) | unknown) | | | | | | GROUP, | | | | | | | | [facility] | | | | + + + + +---------+ + + + + | Result panel 78 | + + + + + + +---------+ + + | (unknown) | (no date) | (unknown) | [facility] | (no | (units | (unknown) | | | | | MEDICAL | value) | unknown) | | | | | | GROUP, | | | | | | | | [facility] | | | | + + + + +---------+ + + + + | Result panel 79 | + + + + + + +---------+ + + | (unknown) | (no date) | (unknown) | [facility] | (no | (units | (unknown) | | | | | MEDICAL | value) | unknown) | | | | | | GROUP, | | | | | | | | [facility] | | | | + + + + +---------+ + + + + | Result panel 80 | + + + + + + +---------+ + + | (unknown) | (no date) | (unknown) | [facility] | (no | (units | (unknown) | | | | | MEDICAL | value) | unknown) | | | | | | GROUP, | | | | | | | | [facility] | | | | + + + + +---------+ + + + + | Result panel 81 | + + + + + + +---------+ + + | (unknown) | (no date) | (unknown) | [facility] | (no | (units | (unknown) | | | | | MEDICAL | value) | unknown) | | | | | | GROUP, | | | | | | | | [facility] | | | | + + + + +---------+ + + + + | Result panel 82 | + + + + + + +---------+ + + | (unknown) | (no date) | (unknown) | [facility] | (no | (units | (unknown) | | | | | MEDICAL | value) | unknown) | | | | | | GROUP, | | | | | | | | [facility] | | | | + + + + +---------+ + + + + | Result panel 83 | + + + + + + +---------+ + + | (unknown) | (no date) | (unknown) | [facility] | (no | (units | (unknown) | | | | | MEDICAL | value) | unknown) | | | | | | GROUP, | | | | | | | | [facility] | | | | + + + + +---------+ + + + + | Result panel 84 | + + + + + + +---------+ + + | (unknown) | (no date) | (unknown) | [facility] | (no | (units | (unknown) | | | | | MEDICAL | value) | unknown) | | | | | | GROUP, | | | | | | | | [facility] | | | | + + + + +---------+ + + + + | Result panel 85 | + + + + + + +---------+ + + | (unknown) | (no date) | (unknown) | [facility] | (no | (units | (unknown) | | | | | MEDICAL | value) | unknown) | | | | | | GROUP, | | | | | | | | [facility] | | | | + + + + +---------+ + + + + | Result panel 86 | + + + + + + +---------+ + + | (unknown) | (no date) | (unknown) | [facility] | (no | (units | (unknown) | | | | | MEDICAL | value) | unknown) | | | | | | GROUP, | | | | | | | | [facility] | | | | + + + + +---------+ + + + + | Result panel 87 | + + + + + + +---------+ + + | (unknown) | (no date) | (unknown) | [facility] | (no | (units | (unknown) | | | | | MEDICAL | value) | unknown) | | | | | | GROUP, | | | | | | | | [facility] | | | | + + + + +---------+ + + + + | Result panel 88 | + + + + + + +---------+ + + | (unknown) | (no date) | (unknown) | [facility] | (no | (units | (unknown) | | | | | MEDICAL | value) | unknown) | | | | | | GROUP, | | | | | | | | [facility] | | | | + + + + +---------+ + + + + | Result panel 89 | + + + + + + +---------+ + + | (unknown) | (no date) | (unknown) | [facility] | (no | (units | (unknown) | | | | | MEDICAL | value) | unknown) | | | | | | GROUP, | | | | | | | | [facility] | | | | + + + + +---------+ + + + + | Result panel 90 | + + + + + + +---------+ + + | (unknown) | (no date) | (unknown) | [facility] | (no | (units | (unknown) | | | | | MEDICAL | value) | unknown) | | | | | | GROUP, | | | | | | | | [facility] | | | | + + + + +---------+ + + + + | Result panel 91 | + + + + + + +---------+ + + | (unknown) | (no date) | (unknown) | [facility] | (no | (units | (unknown) | | | | | MEDICAL | value) | unknown) | | | | | | GROUP, | | | | | | | | [facility] | | | | + + + + +---------+ + + + + | Result panel 92 | + + + + + + +---------+ + + | (unknown) | (no date) | (unknown) | [facility] | (no | (units | (unknown) | | | | | MEDICAL | value) | unknown) | | | | | | GROUP, | | | | | | | | [facility] | | | | + + + + +---------+ + + + + | Result panel 93 | + + + + + + +---------+ + + | (unknown) | (no date) | (unknown) | [facility] | (no | (units | (unknown) | | | | | MEDICAL | value) | unknown) | | | | | | GROUP, | | | | | | | | [facility] | | | | + + + + +---------+ + + + + | Result panel 94 | + + + + + + +---------+ + + | (unknown) | (no date) | (unknown) | [facility] | (no | (units | (unknown) | | | | | MEDICAL | value) | unknown) | | | | | | GROUP, | | | | | | | | [facility] | | | | + + + + +---------+ + + + + | Result panel 95 | + + + + + + +---------+ + + | (unknown) | (no date) | (unknown) | [facility] | (no | (units | (unknown) | | | | | MEDICAL | value) | unknown) | | | | | | GROUP, | | | | | | | | [facility] | | | | + + + + +---------+ + + + + | Result panel 96 | + + + + + + +---------+ + + | (unknown) | (no date) | (unknown) | [facility] | (no | (units | (unknown) | | | | | MEDICAL | value) | unknown) | | | | | | GROUP, | | | | | | | | [facility] | | | | + + + + +---------+ + + + + | Result panel 97 | + + + + + + +---------+ + + | (unknown) | (no date) | (unknown) | [facility] | (no | (units | (unknown) | | | | | MEDICAL | value) | unknown) | | | | | | GROUP, | | | | | | | | [facility] | | | | + + + + +---------+ + + + + | Result panel 98 | + + + + + + +---------+ + + | (unknown) | (no date) | (unknown) | [facility] | (no | (units | (unknown) | | | | | MEDICAL | value) | unknown) | | | | | | GROUP, | | | | | | | | [facility] | | | | + + + + +---------+ + + + + | Result panel 99 | + + + + + + +---------+ + + | (unknown) | (no date) | (unknown) | [facility] | (no | (units | (unknown) | | | | | MEDICAL | value) | unknown) | | | | | | GROUP, | | | | | | | | [facility] | | | | + + + + +---------+ + + + + | Result panel 100 | + + + + + + +---------+ + + | (unknown) | (no date) | (unknown) | [facility] | (no | (units | (unknown) | | | | | MEDICAL | value) | unknown) | | | | | | GROUP, | | | | | | | | [facility] | | | | + + + + +---------+ + + + + | Result panel 101 | + + + + + + +---------+ + + | (unknown) | (no date) | (unknown) | [facility] | (no | (units | (unknown) | | | | | MEDICAL | value) | unknown) | | | | | | GROUP, | | | | | | | | [facility] | | | | + + + + +---------+ + + + + | Result panel 102 | + + + + + + +---------+ + + | (unknown) | (no date) | (unknown) | [facility] | (no | (units | (unknown) | | | | | MEDICAL | value) | unknown) | | | | | | GROUP, | | | | | | | | [facility] | | | | + + + + +---------+ + + + + | Result panel 103 | + + + + + + +---------+ + + | (unknown) | (no date) | (unknown) | [facility] | (no | (units | (unknown) | | | | | MEDICAL | value) | unknown) | | | | | | GROUP, | | | | | | | | [facility] | | | | + + + + +---------+ + + + + | Result panel 104 | + + + + + + +---------+ + + | (unknown) | (no date) | (unknown) | [facility] | (no | (units | (unknown) | | | | | MEDICAL | value) | unknown) | | | | | | GROUP, | | | | | | | | [facility] | | | | + + + + +---------+ + + + + | Result panel 105 | + + + + + + +---------+ + + | (unknown) | (no date) | (unknown) | [facility] | (no | (units | (unknown) | | | | | MEDICAL | value) | unknown) | | | | | | GROUP, | | | | | | | | [facility] | | | | + + + + +---------+ + + + + | Result panel 106 | + + + + + + +---------+ + + | (unknown) | (no date) | (unknown) | [facility] | (no | (units | (unknown) | | | | | MEDICAL | value) | unknown) | | | | | | GROUP, | | | | | | | | [facility] | | | | + + + + +---------+ + + + + | Result panel 107 | + + + + + + +---------+ + + | (unknown) | (no date) | (unknown) | [facility] | (no | (units | (unknown) | | | | | MEDICAL | value) | unknown) | | | | | | GROUP, | | | | | | | | [facility] | | | | + + + + +---------+ + + + + | Result panel 108 | + + + + + + +---------+ + + | (unknown) | (no date) | (unknown) | [facility] | (no | (units | (unknown) | | | | | MEDICAL | value) | unknown) | | | | | | GROUP, | | | | | | | | [facility] | | | | + + + + +---------+ + + + + | Result panel 109 | + + + + + + +---------+ + + | (unknown) | (no date) | (unknown) | [facility] | (no | (units | (unknown) | | | | | MEDICAL | value) | unknown) | | | | | | GROUP, | | | | | | | | [facility] | | | | + + + + +---------+ + + + + | Result panel 110 | + + + + + + +---------+ + + | (unknown) | (no date) | (unknown) | [facility] | (no | (units | (unknown) | | | | | MEDICAL | value) | unknown) | | | | | | GROUP, | | | | | | | | [facility] | | | | + + + + +---------+ + + + + | Result panel 111 | + + + + + + +---------+ + + | (unknown) | (no date) | (unknown) | [facility] | (no | (units | (unknown) | | | | | MEDICAL | value) | unknown) | | | | | | GROUP, | | | | | | | | [facility] | | | | + + + + +---------+ + + + + | Result panel 112 | + + + + + + +---------+ + + | (unknown) | (no date) | (unknown) | [facility] | (no | (units | (unknown) | | | | | MEDICAL | value) | unknown) | | | | | | GROUP, | | | | | | | | [facility] | | | | + + + + +---------+ + + + + | Result panel 113 | + + + + + + +---------+ + + | (unknown) | (no date) | (unknown) | [facility] | (no | (units | (unknown) | | | | | MEDICAL | value) | unknown) | | | | | | GROUP, | | | | | | | | [facility] | | | | + + + + +---------+ + + + + | Result panel 114 | + + + + + + +---------+ + + | (unknown) | (no date) | (unknown) | [facility] | (no | (units | (unknown) | | | | | MEDICAL | value) | unknown) | | | | | | GROUP, | | | | | | | | [facility] | | | | + + + + +---------+ + + + + | Result panel 115 | + + + + + + +---------+ + + | (unknown) | (no date) | (unknown) | [facility] | (no | (units | (unknown) | | | | | MEDICAL | value) | unknown) | | | | | | GROUP, | | | | | | | | [facility] | | | | + + + + +---------+ + + + + | Result panel 116 | + + + + + + +---------+ + + | (unknown) | (no date) | (unknown) | [facility] | (no | (units | (unknown) | | | | | MEDICAL | value) | unknown) | | | | | | GROUP, | | | | | | | | [facility] | | | | + + + + +---------+ + + + + | Result panel 117 | + + + + + + +---------+ + + | (unknown) | (no date) | (unknown) | [facility] | (no | (units | (unknown) | | | | | MEDICAL | value) | unknown) | | | | | | GROUP, | | | | | | | | [facility] | | | | + + + + +---------+ + + + + | Result panel 118 | + + + + + + +---------+ + + | (unknown) | (no date) | (unknown) | [facility] | (no | (units | (unknown) | | | | | MEDICAL | value) | unknown) | | | | | | GROUP, | | | | | | | | [facility] | | | | + + + + +---------+ + + + + | Result panel 119 | + + + + + + +---------+ + + | (unknown) | (no date) | (unknown) | [facility] | (no | (units | (unknown) | | | | | MEDICAL | value) | unknown) | | | | | | GROUP, | | | | | | | | [facility] | | | | + + + + +---------+ + + + + | Result panel 120 | + + + + + + +---------+ + + | (unknown) | (no date) | (unknown) | [facility] | (no | (units | (unknown) | | | | | MEDICAL | value) | unknown) | | | | | | GROUP, | | | | | | | | [facility] | | | | + + + + +---------+ + + + + | Result panel 121 | + + + + + + +---------+ + + | (unknown) | (no date) | (unknown) | [facility] | (no | (units | (unknown) | | | | | MEDICAL | value) | unknown) | | | | | | [facility], | | | | | | | | [facility] | | | | + + + + +---------+ + + + + | Result panel 122 | + + + + + + +---------+ + + | (unknown) | (no date) | (unknown) | [facility] | (no | (units | (unknown) | | | | | [facility] | value) | unknown) | | | | | | [facility], | | | | | | | | [facility] | | | | + + + + +---------+ + + + + | Result panel 123 | + + + + + + +---------+ + + | (unknown) | (no date) | (unknown) | [facility] | (no | (units | (unknown) | | | | | [facility] | value) | unknown) | | | | | | [facility], | | | | | | | | [facility] | | | | + + + + +---------+ + + + + | Result panel 124 | + + + + + + +---------+ + + | (unknown) | (no date) | (unknown) | [facility] | (no | (units | (unknown) | | | | | [facility] | value) | unknown) | | | | | | [facility], | | | | | | | | [facility] | | | | + + + + +---------+ + + + + | Result panel 125 | + + + + + + +---------+ + + | (unknown) | (no date) | (unknown) | [facility] | (no | (units | (unknown) | | | | | [facility] | value) | unknown) | | | | | | [facility], | | | | | | | | [facility] | | | | + + + + +---------+ + + + + | Result panel 126 | + + + + + + +---------+ + + | (unknown) | (no date) | (unknown) | [facility] | (no | (units | (unknown) | | | | | [facility] | value) | unknown) | | | | | | [facility], | | | | | | | | [facility] | | | | + + + + +---------+ + + + + | Result panel 127 | + + + + + + +---------+ + + | (unknown) | (no date) | (unknown) | [facility] | (no | (units | (unknown) | | | | | [facility] | value) | unknown) | | | | | | [facility], | | | | | | | | [facility] | | | | + + + + +---------+ + + + + | Result panel 128 | + + + + + + +---------+ + + | (unknown) | (no date) | (unknown) | [facility] | (no | (units | (unknown) | | | | | [facility] | value) | unknown) | | | | | | [facility], | | | | | | | | [facility] | | | | + + + + +---------+ + + + + | Result panel 129 | + + + + + + +---------+ + + | (unknown) | (no date) | (unknown) | [facility] | (no | (units | (unknown) | | | | | [facility]ICAL | value) | unknown) | | | | | | [facility], | | | | | | | | [facility] | | | | + + + + +---------+ + + + + | Result panel 130 | + + + + + + +---------+ + + | (unknown) | (no date) | (unknown) | [facility] | (no | (units | (unknown) | | | | | [facility] | value) | unknown) | | | | | | [facility], | | | | | | | | [facility] | | | | + + + + +---------+ + + + + | Result panel 131 | + + + + + + +---------+ + + | (unknown) | (no date) | (unknown) | [facility] | (no | (units | (unknown) | | | | | [facility] | value) | unknown) | | | | | | [facility], | | | | | | | | [facility] | | | | + + + + +---------+ + + + + | Result panel 132 | + + + + + + +---------+ + + | (unknown) | (no date) | (unknown) | [facility] | (no | (units | (unknown) | | | | | [facility] | value) | unknown) | | | | | | [facility], | | | | | | | | [facility] | | | | + + + + +---------+ + + + + | Result panel 133 | + + + + + + +---------+ + + | (unknown) | (no date) | (unknown) | [facility] | (no | (units | (unknown) | | | | | [facility] | value) | unknown) | | | | | | [facility], | | | | | | | | [facility] | | | | + + + + +---------+ + + + + | Result panel 134 | + + + + + + +---------+ + + | (unknown) | (no date) | (unknown) | [facility] | (no | (units | (unknown) | | | | | [facility]ICAL | value) | unknown) | | | | | | [facility], | | | | | | | | [facility] | | | | + + + + +---------+ + + + + | Result panel 135 | + + + + + + +---------+ + + | (unknown) | (no date) | (unknown) | [facility] | (no | (units | (unknown) | | | | | MEDICAL | value) | unknown) | | | | | | [facility], | | | | | | | | [facility] | | | | + + + + +---------+ + + + + | Result panel 136 | + + + + + + +---------+ + + | (unknown) | (no date) | (unknown) | [facility] | (no | (units | (unknown) | | | | | MEDICAL | value) | unknown) | | | | | | [facility], | | | | | | | | [facility] | | | | + + + + +---------+ + + + + | Result panel 137 | + + + + + + +---------+ + + | (unknown) | (no date) | (unknown) | [facility] | (no | (units | (unknown) | | | | | MEDICAL | value) | unknown) | | | | | | [facility], | | | | | | | | [facility] | | | | + + + + +---------+ + + + + | Result panel 138 | + + + + + + +---------+ + + | (unknown) | (no date) | (unknown) | [facility] | (no | (units | (unknown) | | | | | MEDICAL | value) | unknown) | | | | | | [facility], | | | | | | | | [facility] | | | | + + + + +---------+ + + + + | Result panel 139 | + + + + + + +---------+ + + | (unknown) | (no date) | (unknown) | [facility] | (no | (units | (unknown) | | | | | [facility]ICAL | value) | unknown) | | | | | | [facility], | | | | | | | | [facility] | | | | + + + + +---------+ + + + + | Result panel 140 | + + + + + + +---------+ + + | (unknown) | (no date) | (unknown) | [facility] | (no | (units | (unknown) | | | | | MEDICAL | value) | unknown) | | | | | | [facility], | | | | | | | | [facility] | | | | + + + + +---------+ + + + + | Result panel 141 | + + + + + + +---------+ + + | (unknown) | (no date) | (unknown) | [facility] | (no | (units | (unknown) | | | | | [facility]ICAL | value) | unknown) | | | | | | [facility], | | | | | | | | [facility] | | | | + + + + +---------+ + + + + | Result panel 142 | + + + + + + +---------+ + + | (unknown) | (no date) | (unknown) | [facility] | (no | (units | (unknown) | | | | | MEDICAL | value) | unknown) | | | | | | [facility], | | | | | | | | [facility] | | | | + + + + +---------+ + + + + | Result panel 143 | + + + + + + +---------+ + + | (unknown) | (no date) | (unknown) | [facility] | (no | (units | (unknown) | | | | | [facility]ICAL | value) | unknown) | | | | | | [facility] | | | | | | | | [facility] | | | | + + + + +---------+ + + + + | Result panel 144 | + + + + + + +---------+ + + | (unknown) | (no date) | (unknown) | [facility] | (no | (units | (unknown) | | | | | MEDICAL | value) | unknown) | | | | | | [facility], | | | | | | | | [facility] | | | | + + + + +---------+ + + + + | Result panel 145 | + + + + + + +---------+ + + | (unknown) | (no date) | (unknown) | [facility] | (no | (units | (unknown) | | | | | MEDICAL | value) | unknown) | | | | | | [facility], | | | | | | | | [facility] | | | | + + + + +---------+ + + + + | Result panel 146 | + + + + + + +---------+ + + | (unknown) | (no date) | (unknown) | [facility] | (no | (units | (unknown) | | | | | MEDICAL | value) | unknown) | | | | | | [facility], | | | | | | | | [facility] | | | | + + + + +---------+ + + + + | Result panel 147 | + + + + + + +---------+ + + | (unknown) | (no date) | (unknown) | [facility] | (no | (units | (unknown) | | | | | [facility] | value) | unknown) | | | | | | [facility], | | | | | | | | [facility] | | | | + + + + +---------+ + + + + | Result panel 148 | + + + + + + +---------+ + + | (unknown) | (no date) | (unknown) | [facility] | (no | (units | (unknown) | | | | | MEDICAL | value) | unknown) | | | | | | [facility], | | | | | | | | [facility] | | | | + + + + +---------+ + + + + | Result panel 149 | + + + + + + +---------+ + + | (unknown) | (no date) | (unknown) | [facility] | (no | (units | (unknown) | | | | | [facility] | value) | unknown) | | | | | | [facility], | | | | | | | | [facility] | | | | + + + + +---------+ + + + + | Result panel 150 | + + + + + + +---------+ + + | (unknown) | (no date) | (unknown) | [facility] | (no | (units | (unknown) | | | | | [facility] | value) | unknown) | | | | | | [facility], | | | | | | | | [facility] | | | | + + + + +---------+ + + + + | Result panel 151 | + + + + + + +---------+ + + | (unknown) | (no date) | (unknown) | [facility] | (no | (units | (unknown) | | | | | MEDICAL | value) | unknown) | | | | | | [facility], | | | | | | | | [facility] | | | | + + + + +---------+ + + + + | Result panel 152 | + + + + + + +---------+ + + | (unknown) | (no date) | (unknown) | [facility] | (no | (units | (unknown) | | | | | [facility] | value) | unknown) | | | | | | [facility], | | | | | | | | [facility] | | | | + + + + +---------+ + + + + | Result panel 153 | + + + + + + +---------+ + + | (unknown) | (no date) | (unknown) | [facility] | (no | (units | (unknown) | | | | | [facility] | value) | unknown) | | | | | | [facility], | | | | | | | | [facility] | | | | + + + + +---------+ + + + + | Result panel 154 | + + + + + + +---------+ + + | (unknown) | (no date) | (unknown) | [facility] | (no | (units | (unknown) | | | | | MEDICAL | value) | unknown) | | | | | | [facility], | | | | | | | | [facility] | | | | + + + + +---------+ + + + + | Result panel 155 | + + + + + + +---------+ + + | (unknown) | (no date) | (unknown) | [facility] | (no | (units | (unknown) | | | | | MEDICAL | value) | unknown) | | | | | | [facility], | | | | | | | | [facility] | | | | + + + + +---------+ + + + + | Result panel 156 | + + + + + + +---------+ + + | (unknown) | (no date) | (unknown) | [facility] | (no | (units | (unknown) | | | | | MEDICAL | value) | unknown) | | | | | | [facility], | | | | | | | | [facility] | | | | + + + + +---------+ + + + + | Result panel 157 | + + + + + + +---------+ + + | (unknown) | (no date) | (unknown) | [facility] | (no | (units | (unknown) | | | | | MEDICAL | value) | unknown) | | | | | | [facility], | | | | | | | | [facility] | | | | + + + + +---------+ + + Social History + + + + | date | description | facility | + + + + | 2012-10-03 00:00 | [facility] (finding) | [facility] | | | | | + + + + | 2022-03-30 00:00 | Smoker (finding) | [facility] | | | | | + + + + | 2022-04-18 00:00 | Smoker (finding) | [facility] | | | | | + + + + | 2022-08-28 00:00 | Smoker (finding) | [facility] | | | | | + + + + | 2022-09-15 00:00 | Smoker (finding) | [facility] | | | | | + + + + | 2023-04-20 00:00 | Smoker (finding) | [facility] | | | | | + + + + Vital Signs + + + + + | date | measurement | value | units | + + + + + | 2021-09-13 00:00 | BMI | 50.8 | kg/m2 | + + + + + | 2021-09-13 00:00 | BP_diastolic | 70 | mmHg | + + + + + | 2021-09-13 00:00 | BP_systolic | 142 | mmHg | + + + + + | 2021-09-13 00:00 | BSA | 2.65 | m2 | + + + + + | 2021-09-13 00:00 | heart_rate | 1|1| | completed | + + + + + | 2021-09-13 00:00 | heart_rate | 72 | /min | + + + + + | 2021-09-13 00:00 | height_metric | 177.16 | cm | + + + + + | 2021-09-13 00:00 | height_standard | 69.75 | in | + + + + + | 2021-09-13 00:00 | temperature_metric | 36.22 | C | | | | | | + + + + + | 2021-09-13 00:00 | | 97.2 | F | | | temperature_standar | | | | | d | | | + + + + + | 2021-09-13 00:00 | weight_metric | 159.44 | kg | + + + + + | 2021-09-13 00:00 | weight_standard | 351.5 | lb | + + + + + | 2021-09-28 00:00 | BMI | 50.6 | kg/m2 | + + + + + | 2021-09-28 00:00 | BP_diastolic | 98 | mmHg | + + + + + | 2021-09-28 00:00 | BP_systolic | 136 | mmHg | + + + + + | 2021-09-28 00:00 | BSA | 2.64 | m2 | + + + + + | 2021-09-28 00:00 | heart_rate | 107 | /min | + + + + + | 2021-09-28 00:00 | heart_rate | 1|1| | completed | + + + + + | 2021-09-28 00:00 | height_metric | 177.16 | cm | + + + + + | 2021-09-28 00:00 | height_standard | 69.75 | in | + + + + + | 2021-09-28 00:00 | o2_saturation | 99 | % | + + + + + | 2021-09-28 00:00 | temperature_metric | 36 | C | | | | | | + + + + + | 2021-09-28 00:00 | | 96.8 | F | | | temperature_standar | | | | | d | | | + + + + + | 2021-09-28 00:00 | weight_metric | 158.87 | kg | + + + + + | 2021-09-28 00:00 | weight_standard | 350.25 | lb | + + + + + | 2022-03-23 00:00 | BMI | 51.3 | kg/m2 | + + + + + | 2022-03-23 00:00 | BP_diastolic | 88 | mmHg | + + + + + | 2022-03-23 00:00 | BP_systolic | 132 | mmHg | + + + + + | 2022-03-23 00:00 | BSA | 2.66 | m2 | + + + + + | 2022-03-23 00:00 | heart_rate | 1|1| | completed | + + + + + | 2022-03-23 00:00 | heart_rate | 74 | /min | + + + + + | 2022-03-23 00:00 | height_metric | 177.16 | cm | + + + + + | 2022-03-23 00:00 | height_standard | 69.75 | in | + + + + + | 2022-03-23 00:00 | o2_saturation | 99 | % | + + + + + | 2022-03-23 00:00 | temperature_metric | 36.61 | C | | | | | | + + + + + | 2022-03-23 00:00 | | 97.9 | F | | | temperature_standar | | | | | d | | | + + + + + | 2022-03-23 00:00 | weight_metric | 161.03 | kg | + + + + + | 2022-03-23 00:00 | weight_standard | 355 | lb | + + + + + | 2022-04-18 00:00 | BMI | 50.7 | kg/m2 | + + + + + | 2022-04-18 00:00 | BP_diastolic | 86 | mmHg | + + + + + | 2022-04-18 00:00 | BP_systolic | 132 | mmHg | + + + + + | 2022-04-18 00:00 | BSA | 2.64 | m2 | + + + + + | 2022-04-18 00:00 | heart_rate | 1|1| | completed | + + + + + | 2022-04-18 00:00 | heart_rate | 73 | /min | + + + + + | 2022-04-18 00:00 | height_metric | 177.16 | cm | + + + + + | 2022-04-18 00:00 | height_standard | 69.75 | in | + + + + + | 2022-04-18 00:00 | o2_saturation | 99 | % | + + + + + | 2022-04-18 00:00 | temperature_metric | 36.06 | C | | | | | | + + + + + | 2022-04-18 00:00 | | 96.9 | F | | | temperature_standar | | | | | d | | | + + + + + | 2022-04-18 00:00 | weight_metric | 159.27 | kg | + + + + + | 2022-04-18 00:00 | weight_standard | 351.13 | lb | + + + + + | 2022-08-22 00:00 | BMI | 49.2 | kg/m2 | + + + + + | 2022-08-22 00:00 | BP_diastolic | 92 | mmHg | + + + + + | 2022-08-22 00:00 | BP_systolic | 148 | mmHg | + + + + + | 2022-08-22 00:00 | BSA | 2.6 | m2 | + + + + + | 2022-08-22 00:00 | BSA | 2.61 | m2 | + + + + + | 2022-08-22 00:00 | heart_rate | 1|1| | completed | + + + + + | 2022-08-22 00:00 | heart_rate | 88 | /min | + + + + + | 2022-08-22 00:00 | height_metric | 177.16 | cm | + + + + + | 2022-08-22 00:00 | height_standard | 69.75 | in | + + + + + | 2022-08-22 00:00 | o2_saturation | 98 | % | + + + + + | 2022-08-22 00:00 | temperature_metric | 36.28 | C | | | | | | + + + + + | 2022-08-22 00:00 | | 97.3 | F | | | temperature_standar | | | | | d | | | + + + + + | 2022-08-22 00:00 | weight_metric | 154.39 | kg | + + + + + | 2022-08-22 00:00 | weight_standard | 340.38 | lb | + + + + + | 2022-09-14 00:00 | BMI | 48.7 | kg/m2 | + + + + + | 2022-09-14 00:00 | BP_diastolic | 88 | mmHg | + + + + + | 2022-09-14 00:00 | BP_systolic | 128 | mmHg | + + + + + | 2022-09-14 00:00 | BSA | 2.6 | m2 | + + + + + | 2022-09-14 00:00 | BSA | 2.60 | m2 | + + + + + | 2022-09-14 00:00 | heart_rate | 1|1| | completed | + + + + + | 2022-09-14 00:00 | heart_rate | 89 | /min | + + + + + | 2022-09-14 00:00 | height_metric | 177.16 | cm | + + + + + | 2022-09-14 00:00 | height_standard | 69.75 | in | + + + + + | 2022-09-14 00:00 | o2_saturation | 99 | % | + + + + + | 2022-09-14 00:00 | temperature_metric | 36.56 | C | | | | | | + + + + + | 2022-09-14 00:00 | | 97.8 | F | | | temperature_standar | | | | | d | | | + + + + + | 2022-09-14 00:00 | weight_metric | 152.86 | kg | + + + + + | 2022-09-14 00:00 | weight_standard | 337 | lb | + + + + + | 2023-04-18 00:00 | BMI | 47.8 | 1 | + + + + + | 2023-04-18 00:00 | BP_diastolic | 80 | mmHg | + + + + + | 2023-04-18 00:00 | BP_systolic | 124 | mmHg | + + + + + | 2023-04-18 00:00 | BSA | 2.6 | 1 | + + + + + | 2023-04-18 00:00 | heart_rate | 1|1| | completed | + + + + + | 2023-04-18 00:00 | heart_rate | 61 | /min | + + + + + | 2023-04-18 00:00 | height_metric | 177.16 | cm | + + + + + | 2023-04-18 00:00 | height_standard | 69.75 | in | + + + + + | 2023-04-18 00:00 | o2_saturation | 99 | % | + + + + + | 2023-04-18 00:00 | temperature_metric | 36.39 | C | | | | | | + + + + + | 2023-04-18 00:00 | | 97.5 | F | | | temperature_standar | | | | | d | | | + + + + + | 2023-04-18 00:00 | weight_metric | 150.14 | kg | + + + + + | 2023-04-18 00:00 | weight_standard | 331 | lb | + + + + +"
--- OUTSIDE RECORDS SUMMARY | ~2023-06-05 | XMS | Continuity of Care Document ---
Demographics + + + | Address | [address] | | | [place] [address] | + + + | Preferred Language | Unknown | + + + | Marital Status | | + + + | Anabaptist Affiliation | Unknown | + + + | Race | White | + + + | Ethnic Group | Not or | + + + Author + + + | Author | [facility] | + + + | Organization | [facility] | + + + | Address | [address] | | | [place] [address] | + + + | Phone | | + + + Care Team Providers + + + + | Care Fruit Rancher Name | Role | Phone | + + + + Unavailable | Unavailable | + + + + Unavailable | Unavailable | + + + + Allergies and Intolerances + + + + + | date | description | facility | type | + + + + + | (no date) | Rash | [facility] (unknown[facility] | | + + + + + | (no date) | Morphine | [facility] (unknown[facility] | | [facility] | | + + + + + | (no date) | Morphine | [facility] (unknown[facility] | [facility] | | + + + + + | (no date) | Morphine | [facility] | (unknown) | | | | Hospital [...] | GIUSEPPELeslie Spearsadalberto 6 mo-64 yrs | [facility] | | | Quadrivalent | | + + + + Medications + + + + | date | description | facility | + + + + | 2015-03-25 00:00 | triamcinolone acetonide 1 | [facility] | | | MG/ML Topical Cream | | + + + + | 2016-10-31 00:00 | triamcinolone acetonide 1 | [facility] | | | MG/ML Topical Cream | | + + + + | 2022-03-23 00:00 | triamcinolone acetonide 1 | [facility] | | | MG/ML Topical Cream | | + + + + | 2023-05-26 00:00 | CETIRIZINE HCL | [facility] | + + + + | 2017-02-13 00:00 | cetirizine hydrochloride | [facility] | | | 10 MG Oral Tablet [Zyrtec] | | + + + + | 2012-11-06 00:00 | Vitamin D3 25 MCG (1000 | [facility] | | | UT) [...] + | 2023-05-26 00:00 | NAPROXEN | [facility] | + + + + | 2022-08-22 00:00 | mupirocin 0.02 MG/MG | [facility] | | | Topical Ointment | | + + + + | 2015-08-23 00:00 | ProAir HFA 108 (90 Base) | [facility] | | | MCG/ACT Aerosol, solution | | + + + + | 2012-08-05 00:00 | Maxzide-25 37.5-25 MG OR | [facility] | | | TABS | | + + + + | 2017-02-13 00:00 | ZyrTEC Allergy 10 MG | [facility] | | | Tablet | | + + + + | 2014-08-14 00:00 | [facility] +DHA | [facility] | | | 28-0.975 & 200 MG OR MISC | | + + + + | 2012-07-31 00:00 | Naproxen 500 MG OR TABS | [facility] | | | | | + + + + | 2022-09-14 00:00 | doxycycline monohydrate | [facility] | | | 100 MG Oral Capsule | | + + + + | 2016-11-22 00:00 | Percocet 5-325 MG OR TABS | [facility] | | | | | + + + + | 2016-11-22 00:00 | Percocet 5-325 MG Tablet | [facility] | | | | | + + + + | 2016-06-23 00:00 | Turmeric Curcumin 500 MG | [facility] | | | Capsule | | + + + + | 2016-08-04 00:00 | methylprednisolone 125 MG | [facility] | | | Injection [Solu-Medrol] | | + + + + | 2015-03-25 00:00 | predniSONE 10 MG OR TABS | [facility] | | | | | + + + + | 2015-08-17 00:00 | PredniSONE 20 MG Tablet | [facility] | | | | | + + + + | 2015-08-23 00:00 | PredniSONE 20 MG Tablet | [facility] | | | | | + + + + | 2016-08-04 00:00 | PredniSONE 20 MG Tablet | [facility] | | | | | + + + + | 2016-10-31 00:00 | PredniSONE 20 MG Tablet | [facility] | | | | | + + + + | 2018-09-03 00:00 | PredniSONE 20MG Oral | [facility] | | | Tablet | | + + + + | 2023-05-26 00:00 | FLUTICASONE PROPIONATE | [facility] | + + + + | 2013-09-26 00:00 | cefprozil 500 MG Oral | [facility] | | | Tablet | | + + + + | 2012-07-31 00:00 | naproxen 500 MG Oral | [facility] | | | Tablet | | + + + + | 2015-03-25 00:00 | prednisone 10 MG Oral | [facility] | | | Tablet | | + + + + | 2014-09-09 00:00 | sulfasalazine 500 MG Oral | [facility] | | | Tablet | | + + + + | 2015-10-05 00:00 | sulfasalazine 500 MG Oral | [facility] | | | Tablet | | + + + + | 2016-08-04 00:00 | sulfasalazine 500 MG Oral | [facility] | | | Tablet [...] | [facility] | + + + + | 2016-08-04 00:00 | SOLU-Medrol 125 MG IJ SOLR | [facility] | | | | | + + + + | 2015-10-05 00:00 | SulfaSALAzine 500 MG | [facility] | | | Tablet | | + + + + | 2016-08-04 00:00 | SulfaSALAzine 500 MG | [facility] | | | Tablet | | + + + + | 2017-09-12 00:00 | SulfaSALAzine 500MG Oral | [facility] | | | Tablet [...] + | 2021-07-15 00:00 | CELECOXIB | [facility] | + + + + | 2023-05-26 00:00 | LORATADINE | [facility] | + + + + | 2012-11-06 00:00 | fluconazole 200 MG Oral | [facility] | | | Tablet [Diflucan] | | + + + + | 2023-05-26 00:00 | SULFASALAZINE | [facility] | + + + + | 2022-03-23 00:00 | Ubrelvy 100 MG Oral Tablet | [facility] | | | | | + + + + | 2018-01-30 00:00 | acetaminophen 500 MG Oral | [facility] | | | Tablet [Tylenol] | | + + + + | 2022-04-11 00:00 | Nurtec 75 MG Oral Tablet | [facility] | | | Disintegrating | | + + + + | 2022-04-18 00:00 | Nurtec 75 MG Oral Tablet | [facility] | | | Disintegrating | | + + + + | 2016-10-31 00:00 | Triamcinolone Acetonide | [facility] | | | 0.1 % Cream | | + + + + | 2015-03-25 00:00 | Triamcinolone Acetonide | [facility] | | | 0.1% EX CREA | | + + + + | 2022-03-23 00:00 | Triamcinolone Acetonide | [facility] | | | 0.1% External Cream | | + + + + | 2018-01-30 00:00 | Tylenol Extra Strength | [facility] | | | 500MG Oral Tablet | | + + + + | 2022-03-23 00:00 | ubrogepant 100 MG Oral | [facility] | | | Tablet [Ubrelvy] | | + + + + | 2022-04-11 00:00 | Rimegepant 75 MG | [facility] | | | Disintegrating Oral Tablet | | | | [Nurtec] | | + + + + | 2022-04-18 00:00 | Rimegepant 75 MG | [facility] | | | Disintegrating Oral Tablet | | | | [Nurtec] | | + + + + | 2022-04-11 00:00 | rimegepant 75 MG | [facility] | | | Disintegrating Oral Tablet | | | | [Nurtec] | | + + + + | 2022-04-18 00:00 | rimegepant 75 MG | [facility] | | | Disintegrating Oral Tablet | | | | [Nurtec] | | + + + + | 2012-11-06 00:00 | cholecalciferol 0.025 MG | [facility] | | | Oral Capsule | | + + + + | 2013-09-26 00:00 | Cefprozil 500 MG OR TABS | [facility] | | | | | + + + + | 2022-09-14 00:00 | Doxycycline Monohydrate | [facility] | | | 100 MG Oral Capsule | | + + + + | 2012-10-03 00:00 | Famotidine 20 MG OR TABS | [facility] | | | | | + + + + | 2017-05-02 00:00 | FLUoxetine HCl 10 MG | [facility] | | | Capsule [...] 00:00 | Lisinopril 10 MG Oral | [facility] | | | Tablet | | + + + + | 2022-06-27 00:00 | Lisinopril 10 MG Oral | [facility] | | | Tablet | | + + + + | 2017-02-13 00:00 | sumatriptan 100 MG Oral | [facility] | | | Tablet [Imitrex] | | + + + + | 2021-09-28 00:00 | sumatriptan 100 MG Oral | [facility] | | | Tablet [Imitrex] | | + + + + | 2022-04-18 00:00 | sumatriptan 100 MG Oral | [facility] | | | Tablet [...] 00:00 | fluoxetine 10 MG Oral | [facility] | | | Capsule [...] 00:00 | prednisone 20 MG Oral | [facility] | | | Tablet [...] 00:00 | lisinopril 10 MG Oral | [facility] | | | Tablet [...] 00:00 | Cyclobenzaprine HCl 10 MG | [facility] | | | Tablet | | + + + + | 2022-04-18 00:00 | Maxalt-ENVIRONMENTAL LEAD 10 MG Oral | [facility] | | | Tablet Disintegrating | | + + + + | 2012-11-06 00:00 | Diflucan 200 MG OR TABS | [facility] | | | | | + + + + | 2021-09-28 00:00 | Imitrex 100 MG Oral Tablet | [facility] | | | | | + + + + | 2022-04-18 00:00 | Imitrex 100 MG Oral Tablet | [facility] | | | | | + + + + | 2017-02-13 00:00 | Imitrex 100 MG Tablet | [facility] | | | | | + + + + | 2015-08-23 00:00 | [id number] 200 ACTUAT | [facility] | | | albuterol 0.09 MG/ACTUAT | | | | Metered Dose Inhaler | | | | [ProAir] | | + + + + | 2012-11-06 00:00 | amoxicillin 500 MG / | [facility] | | | clavulanate 125 MG Oral | | | | Tablet [Augmentin] | | + + + + | 2017-02-13 00:00 | cyclobenzaprine | [facility] | | | hydrochloride 10 MG Oral | | | | Tablet | | + + + + | 2022-04-18 00:00 | rizatriptan 10 MG | [facility] | | | Disintegrating Oral Tablet | | | | [Maxalt] | | + + + + | 2015-03-25 00:00 | Pseudoephedrine HCl ER 120 | [facility] | | | MG OR TB12 | | + + + + | 2021-07-15 00:00 | HYDROCODONE | [facility] | | | BIT/ACETAMINOPHEN | | + + + + | 2014-07-10 00:00 | HYDROCODONE | [facility] | | | BIT/ACETAMINOPHEN | | + + + + | 2012-11-06 00:00 | Sudafed 12 Hour 120 MG OR | [facility] | | | TB12 | | + + + + | 2017-09-12 00:00 | Mucinex 600MG Oral Tablet | [facility] | | | Extended Release 12 Hour | | + + + + | 2017-09-12 00:00 | 12 HR guaifenesin 600 MG | [facility] | | | Extended Release Oral | | | | Tablet [Mucinex] | | + + + + | 2017-02-13 00:00 | Excedrin Tension Headache | [facility] | | | 500-65 MG Tablet | | + + + + | 2012-08-05 00:00 | hydrochlorothiazide 25 MG | [facility] | | | / triamterene 37.5 MG Oral | | | | Tablet [Maxzide] | | + + + + | 2015-08-17 00:00 | Miscellaneous Tablet | [facility] | | | | | + + + + | 2015-03-25 00:00 | VITAMIN D2 50,000 OR | [facility] | | | TABS | | + + + + | 2015-08-23 00:00 | Miscellaneous | [facility] 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 | | | (situation) | | + + + + | 2021-04-12 00:00 | Inj/Asp Major Joint/Bursa | [facility] | | | (Shoulder;Hip;Knee); [...] 2021-09-28 00:00 | FluLaval Quadrivalent PFS | [facility] | | | flu vaccine, 6 mos+ | | + + + + | 2021-09-28 00:00 | Flulaval Flu Vaccine PFS | [facility] | | | Quadrivalent | | + + + + | 2021-04-12 00:00 | Kenalog; Injection | [facility] | | | (Triamcinolone [...] | 2012-10-03 00:00 | Ex-smoker (finding) | [facility] | | | | [...] | 2022-09-15 00:00 | Smoker (finding) | [facility] | | | | | + + + + | 2023-04-20 00:00 | Smoker (finding) | [facility] | | | | | + [...]
[~2023-06-05 18:44] MED LIST changes: +CELECOXIB200 MG PO; +TYLENOL EXTRA500 MG PO
[2023-06-05] MEDS ORDERED: FLUOXETINE HCL10 MG PO (23:10)
[2023-06-05] MEDS ORDERED: TRIAMCINOLONE A15 G1 TOP (23:11)
[2023-06-05] MEDS ORDERED: NURTEC ODT75 MG PO (23:11)
[2023-06-05 23:32] VITALS: BP 167/95
== END 2023-06-05 23:32 | disposition home or self-care (01) ==
LOC: ED 18:44
DX: S61.213A Laceration without foreign body of left middle finger without damage to nail, initial encounter (principal); W26.0XXA Contact with knife, initial encounter; Z23 Encounter for immunization; Z87.891 Personal history of nicotine dependence; Z88.5 Allergy status to narcotic agent; Z91.013 Allergy to seafood; Z91.048 Other nonmedicinal substance allergy status; Z79.899 Other long term (current) drug therapy
CPT/HCPCS: 90471; 90715; 99282 25